=== PATIENT | female | born 2000 | race Caucasian/White ===

== ENCOUNTER 2022-07-03 12:58 | Outpatient (REF) | payer BC, SELFPAY ==
[2022-07-04 16:48] LABS: CT PCR NOT DETECTED (Not Detect.); NG PCR NOT DETECTED (Not Detect.)
[2022-07-05 13:32] LABS: BV Int Neg Control Negative (Negative); BV Int Pos Control Positive (Positive)
== END 2022-07-03 12:59 | disposition home or self-care (01) ==
LOC: HO.LNP 12:58
PROVIDERS: PCP Internal Medicine; Visit Provider Advanced Practice Midwife
DX: Z01.419 Encounter for gynecological examination (general) (routine) without abnormal findings (principal); Z20.2 Contact with and (suspected) exposure to infections with a predominantly sexual mode of transmission
CPT/HCPCS: 0353U; 87480; 87510; 87660; 88142

== ENCOUNTER → 2022-07-08 12:55 | Outpatient (BNVA) | payer BC, SELFPAY | PROVIDERS: PCP Internal Medicine; Visit Provider Advanced Practice Midwife | DX: Z30.430 Encounter for insertion of intrauterine contraceptive device (principal) | CPT/HCPCS: 58300; 81025; J7296 ==

== ENCOUNTER → 2022-08-21 13:38 | Outpatient (BNVA) | payer BC, SELFPAY | PROVIDERS: PCP Internal Medicine; Visit Provider Advanced Practice Midwife ==

== ENCOUNTER 2023-02-02 08:25 | Outpatient (AMB) | payer BC, SELFPAY ==
--- NOTE | 2023-02-02 08:41 | AM.OFFVISNUR ---
Intake Intake Visit Reasons: Flu shot, TB Test Allergies No Known Allergies Allergy (Verified 08/21/22 13:49) Office Meds tuberculin PPD 5 tub. unit/0.1 mL intradermal injection solution Performing Provider: Mansi Thompson MD [facility] 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
== END 2023-02-02 08:41 | disposition home or self-care (01) ==
PROVIDERS: PCP Internal Medicine; Visit Provider Internal Medicine
DX: Z23 Encounter for immunization (principal); Z11.1 Encounter for screening for respiratory tuberculosis
CPT/HCPCS: 86580; 90471; 90686

== ENCOUNTER 2023-05-04 07:27 | Outpatient (AMB) | payer BC, SELFPAY ==
[2023-05-04 07:32] VITALS: BP 110/64; BMI 24.0
--- NOTE | 2023-05-04 07:32 | MHC.PC.OV ---
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 Accompanied by: Self / Same As Patient Allergies No Known Allergies Allergy (Verified 05/04/23 07:41) Medication List - Last Reconciled 05/04/23 by Mansi Thompson MD levonorgestrel (Kyleena) intrauterine Tobacco use date assessed: 05/04/23 Dental Screening Dental Screen Date: 05/04/23 Did you have a dental visit in the last 12 months?: Yes Did you have a dental problem in the last 6 months where you did not have access to dental care?: No Was dental information given to patient?: Patient has dentist HPI HPI Comments History of Present Illness Details This is a 22 year old female that comes for her physical exam. No acute complaints. Last Pap smear was 2022. Had flu vaccine already. [facility] Medical History Anemia Surgical History History of lingual frenotomy History of wisdom tooth extraction Family History Father Hypertension Mother No problems noted. Paternal Grandfather Cancer Social History Housing: Apartment Alcohol intake: current Alcohol intake frequency: holidays/special occasions only Alcohol type: wine and hard liquor Patient Tobacco Use Status: Never used Tobacco e-Cigarette/Vaping Use: Currently Using Second Hand Smoke Exposure: No service: No Current occupational status: employed Current occupational exposures/hazards: No Cognitive needs: No Hearing needs: No Vision needs: Yes Female Reproductive History Menstrual Age of Menarche: 11 Questionnaire PHQ-9 Over the last 2 weeks, how often have you been bothered by any of the following problems? 1. Little interest or pleasure in doing things: not at all 2. Feeling down, depressed, or hopeless: not at all 3. Trouble falling or staying asleep, or sleeping too much: not at all 4. Feeling tired or having little energy: not at all 5. Poor appetite or overeating: not at all 6. Feeling bad about yourself - or that you are a failure or have let yourself or your family down: not at all 7. Trouble concentrating on things, such as reading the newspaper or watching television: not at all 8. Moving or speaking so slowly that other people could have noticed. Or the opposite - being so fidgety or restless that you have been moving around a lot more than usual: not at all 9. Thoughts that you would be better off or of hurting yourself in some way: not at all Total score: 0 Depression Screening Interpretation: Negative Depression Screening Done: Yes 87907 - PHQ-9 Billing: Yes Source: Developed by Drs. Marlon Victor, Jeannie Velazco, Jorge Clark and colleagues, with an educational yecenia from [employer]. Thrive Questionnaire Date Thrive assessed: 05/04/23 I am a: Patient What is your living situation today?: I have a steady place to live Within the past 12 months, did the food you bought not last and you didn't have the money to get more?: Never true Within the past 12 months, did you worry whether your food would run out before you got money to buy more?: Never true Do you have trouble paying for medicines?: No Do you have trouble getting transportation to medical appointments?: No Do you have trouble paying your heating and electricity bill?: No Do you have trouble taking care of your child, family member or friend?: No Do you have trouble with day-to-day activities such as bathing, preparing meals, shopping, managing finances, etc.?: No Are you currently unemployed and looking for a job?: No Are you interested in more education?: No Please select the resources that you would like help with: None Currently or been in a relationship where the following occur: no concerns reported THRIVE Score: 0 AUDIT C Alcohol Use Questionnaire (AUDIT-C) 1. How often do you have a drink containing alcohol?: Monthly or less 2. How many drinks containing alcohol do you have on a typical day when you are drinking?: 1 or 2 3. How often do you have six or more drinks on one occasion?: Never Total Score: 1 Score Reviewed/Action Taken: No NINO-7 AMB Questionnaire NINO-7 Date NINO - 7 assessed: 05/04/23 Feeling nervous, anxious, or on edge: 0 = Not at all Not being able to stop or control worryin = Not at all Worrying too much about different things: 0 = Not at all Trouble relaxin = Not at all Being so restless that it is hard to sit still: 0 = Not at all Becoming easily annoyed or irritable: 0 = Not at all Feeling afraid as if something awful might happen: 0 = Not at all Total NINO-7 score (0-4 normal; 5-9 mild; 10-14 moderate; 15-21 severe): 0 Source: Developed by Drs. Marlon Victor, Jeannie Velazco, Jorge Clark and colleagues, with an educational yecenia from [employer]. NINO-7 Assessment Billing NINO-7 Assessment Tool: NINO-7 Assessment 84991 Review of Systems Const All systems reviewed & are unremarkable except as noted in HPI and below Eyes Reports no additional complaints, Denies change in vision and Denies other visual disturbances Card Denies chest pain at rest, Denies chest pain with activity, Denies edema, Denies irregular heart rhythm, Denies claudication, Denies dyspnea, Denies dyspnea on exertion, Denies orthopnea, Denies paroxysmal nocturnal dyspnea and Denies slow heart rate Resp Denies cough, Denies dyspnea and Denies dyspnea on exertion GI Denies abdominal pain, Denies change in bowel habits, Denies excessive flatus, Denies nausea and Denies vomiting Denies urinary incontinence, Denies urinary hesitancy and Denies urinary urgency Musc Denies abnormal gait, Denies atrophy, Denies deformity and Denies limited range of motion Skin/Breast Denies bleeding lesions, Denies changing lesions and Denies rash Neuro Denies abnormal gait, Denies behavioral changes, Denies confusion and Denies lack of coordination Psych Denies behavioral changes and Denies confusion Physical exam (Primary Care) Vital Signs: Last Vital Signs BP 110/64 05/04/23 07:32 BMI result Body Mass Index 24.0 Tobacco/Smoking Status: Tobacco use Status Tobacco use date assessed 05/04/23 05/04/23 07:38 Patient Tobacco Use Status Never used Tobacco 05/04/23 07:38 e-Cigarette/Vaping Use Currently Using 05/04/23 07:38 PHQ-9: PHQ-9 Score PHQ-9: Total score 0 05/04/23 07:38 Depression Screening Interpretation: Negative Thrive Assessment: Date of Thrive Assessment Date Thrive assessed 05/04/23 05/04/23 07:38 Currently or been in a relationship where the following occur: no concerns reported Const General: No confusion Orientation/consciousness: patient oriented x3 and No confusion HENMT Head: Yes normal to inspection, Yes normocephalic and Yes atraumatic Ears: external ears normal Eyes General: appearance normal, both eyes and all related structures Eyelids: Yes eyelids normal Conjunctivae: conjunctivae normal Neck Neck: Yes normal visual inspection and Yes supple Resp Effort & Inspection: normal respiratory effort Auscultation: clear to auscultation bilaterally Cardio Jugular venous distension: no JVD Rate: regular rate Rhythm: regular rhythm Heart sounds: S1 normal heart sound present and S2 normal heart sound present GI Inspection: Yes normal to inspection Palpation (GI): Soft to palpation and nontender Auscultation: normal bowel sounds Skin General skin exam: no rashes or lesions noted Neuro General: patient oriented x3, no focal motor deficits and No confusion Extrem General: Yes full ROM Psych Appearance: grossly normal Assessment and Plan Assessment & Plan (1) Physical exam: Code(s): Z00.00 - Encounter for general adult medical examination without abnormal findings Plan: Repeat in a year. Orders: Orders IRON PROFILE Today D64.9 - Anemia, unspecified Lipid Panel Today Z00.00 - Encounter for general adult medical examination without abnormal findings Comprehensive Check. Panel Fast Today Z00.00 - Encounter for general adult medical examination without abnormal findings Complete Blood Count Auto Diff Today D64.9 - Anemia, unspecified Coding Level of Care Code Est Pt Prev Care 18-39y(35892) Diagnoses Physical exam Z00.00 Additional Codes NINO-7 Assessment Billing - NINO-7 Assessment Tool: NINO-7 Assessment 88459 ([id number]) Time Spent (min) 30
== END 2023-05-04 07:50 | disposition home or self-care (01) ==
PROVIDERS: Visit Provider Internal Medicine
DX: Z00.00 Encounter for general adult medical examination without abnormal findings (principal)
CPT/HCPCS: 99395

== ENCOUNTER 2023-05-27 09:02 | Outpatient (REF) | payer BC, SELFPAY ==
[2023-05-27 09:16] LABS: MANUAL DIFF FLAG NO
[2023-05-27 09:37] LABS: Basophils Percent Auto 1.2 % (0-2); Eosinophils Absolute Auto 0.1 X10*3/uL (0.0-0.4); Eosinophils Percent Auto 2.6 % (0-4); Hematocrit 27.7 % (37.0-47.0); Hemoglobin 9.7 g/dl (12.0-16.0); Lymphocytes Absolute Auto 1.3 X10*3/uL (1.2-4.9); Lymphocytes Percent Auto 36.7 % (20-40); Mean Corpuscular Hemoglobin 37.9 pg (27.0-33.0); Mean Corpuscular Volume 108.2 fL (80.0-98.0); Mean Platelet Volume 8.9 fL (9.4-12.3); Monocytes Absolute Auto 0.2 X10*3/uL (0.1-1.2); Monocytes Percent Auto 5.8 % (2-11); Neutrophils Absolute Auto 1.8 x10*3/uL (2.0-8.3); Neutrophils Percent Auto 53.7 % (45-73); Platelet Count 279 X10*3/uL (160-400); Red Blood Count 2.56 X10*6/uL (4.20-5.50); Red Cell Distribution Width 12.5 % (11.0-16.0); White Blood Count 3.4 X10*3/uL (4.8-10.8)
[2023-05-27 10:08] LABS: Alanine Aminotransferase 7 U/L (0-31); Albumin Level 4.4 g/dL (3.5-5.0); Alkaline Phosphatase 64 U/L (39-117); Anion Gap 11 (12-20); Aspartate Amino Transferase 11 U/L (5-31); Bilirubin Total 0.6 mg/dL (0.0-1.0); Blood Urea Nitrogen 7 mg/dL (9-16); Calcium 9.1 mg/dL (8.4-10.2); Carbon Dioxide 22 mmol/L (22-29); Chloride 110 mmol/L (96-108); Cholesterol 94 mg/dL (<200); Estimated Glomerular Filt Rate > 60; Glucose Fasting 98 mg/dL (60-99); HDL Cholesterol 46 mg/dL (>40); Iron 165 mcg/dL (30-160); LDL Cholesterol Calculated 42 mg/dL (<100); Percent Iron Saturation 79 % (15-50); Potassium 3.9 mmol/L (3.3-5.1); Sodium 139 mmol/L (135-145); Total Iron Binding Capacity 208 mcg/dL (228-428); Total Protein 6.8 g/dL (6.5-8.0); Triglycerides 32 mg/dL (<150); Unsaturated Iron Binding 43 ug/dL
== END 2023-05-27 09:03 | disposition home or self-care (01) ==
LOC: HO.LAB 09:02
PROVIDERS: Visit Provider Internal Medicine
DX: Z00.00 Encounter for general adult medical examination without abnormal findings (principal); D64.9 Anemia, unspecified
CPT/HCPCS: 36415; 80053; 80061; 83540; 85025

== ENCOUNTER → 2023-07-09 15:00 | Outpatient (BNV) | payer BC, SELFPAY | PROVIDERS: PCP Internal Medicine; Referring Provider Internal Medicine; Visit Provider Internal Medicine Medical Oncology | DX: D72.819 Decreased white blood cell count, unspecified (principal); D64.9 Anemia, unspecified | CPT/HCPCS: 99204; 99213 ==

== ENCOUNTER 2023-08-23 09:00 | Outpatient (REF) | payer BC, SELFPAY ==
[2023-08-24 02:34] LABS: CT PCR NOT DETECTED (Not Detect.); NG PCR NOT DETECTED (Not Detect.)
[2023-08-24 12:22] LABS: BV Int Neg Control Negative (Negative); BV Int Pos Control Positive (Positive)
== END 2023-08-23 09:01 | disposition home or self-care (01) ==
LOC: HO.LNP 09:00
PROVIDERS: Visit Provider Advanced Practice Midwife
DX: Z11.3 Encounter for screening for infections with a predominantly sexual mode of transmission (principal)
CPT/HCPCS: 0353U; 87480; 87510; 87660

== ENCOUNTER 2023-08-23 09:00 | Outpatient (AMB) | payer BC, SELFPAY ==
[2023-08-23 09:09] VITALS: BP 106/52; BMI 24.3
--- NOTE | 2023-08-23 09:09 | MHC.OFFVIS ---
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 She has not having any problems she is going to be seeing Rheumatology Hematology for follow-up on her CBC and she is also going to be seeing the technician test systems at [facility] to investigate things as well she had been told she was anemic and she would some abnormal red blood cells and red blood cell count was low so she had a bone marrow biopsy when she was 16 years old and things turned to fine but she is decided to continue the follow-up that she did not finish. She has not having any problems with the IUD she can tell when she is sort of premenstrual and menstrual she gets a 1 day of spotting. Which was about a week ago. 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 She has no concerns about STIs but after some discussion she is open to getting tested. She had no problem putting the IUD in and getting tattoos but getting blood drawn makes her want to pass out so I offered to order blood work for her that she can choose whether not get done when the next time she gets her blood drawn in 1 phlebotomy episode. She is healthy and has new symptoms of anything she is happy with the Kyleena IUD. [facility] Medical History Anemia Surgical History History of lingual frenotomy History of wisdom tooth extraction Family History Father Hypertension Mother No problems noted. Paternal Grandfather Cancer Social History (Reviewed 08/23/23 @ 09:11 by GLORIA Reed Household Members: Significant Other Housing: Apartment Alcohol intake: current Alcohol intake frequency: holidays/special occasions only Alcohol type: wine and hard liquor Patient Tobacco Use Status: Never used Tobacco e-Cigarette/Vaping Use: Currently Using Second Hand Smoke Exposure: No service: No Current occupational status: employed Current occupational exposures/hazards: No Cognitive needs: No Hearing needs: No Vision needs: Yes Female Reproductive History Menstrual Age of Menarche: 11 control method: progestin IUCD Total pregnancies: 1 Ab induced: 1 Date of last pap smear: 07/06/22 (negative) History of abnormal pap smear: No Physical Exam Vital Signs: Last Vital Signs BP 106/52 L 08/23/23 09:09 BMI result Body Mass Index 24.3 Const General: healthy appearing, comfortable, no acute distress, well developed and alert Nutritional Appearance: average body habitus Orientation/consciousness: patient oriented x3 Limitations: no limitations HEENT Head: Yes normocephalic Neck Neck: Yes normal visual inspection Thyroid: Thyroid normal Chest Chest palpation & inspection: normal inspection of the chest Breast/axilla inspection: normal inspection of the breasts and normal inspection of the axillae Breast/axilla palpation: normal palpation of the breasts and normal palpation of the axillae Resp Effort & Inspection: normal respiratory effort GI Inspection: Yes normal to inspection, No Abdominal wall edema and No distended Palpation (GI): Soft to palpation and nontender Other: External exam within normal limits vulva and vagina pink healthy scant clear mucus cervix nulliparous with Kyleena strings easily visible extending about 2 2.5 cm,. Cervix mobile nontender uterus midposition to very slightly retroverted mobile nontender not enlarged adnexa not enlarged good tone with Kegel. General: Yes bladder normal to palpation External Female Exam: normal external appearance and normal appearance of the urethra Speculum Exam - Vagina: normal appearance of the vagina, normal palpation and normal vaginal discharge Speculum Exam - Cervix: normal appearance of the cervix, normal palpation and nontender Bimanual exam- vagina & uterus: normal bimanual exam, normal palpation, uterine size normal, bladder normal to palpation, consistency normal, normal palpation, uterine mobility normal, uterine shape normal, No Cervical tenderness present, non-tender and no cervical motion tenderness Bimanual Exam- Adnexa, other: normal adnexae, no masses, normal and No adnexal tenderness Neuro General: patient oriented x3 Assessment & Plan Assessment & Plan (1) Contraception management: Comment: Has Kyleena IUD inserted 07/08/22, happy with it. Code(s): Z30.9 - Encounter for contraceptive management, unspecified Category: Medical (2) Screening for cervical cancer: Comment: 07/03/2022 Pap is negative. Code(s): Z12.4 - Encounter for screening for malignant neoplasm of cervix Category: Medical (3) Well woman exam with routine gynecological exam: Code(s): Z01.419 - Encounter for gynecological examination (general) (routine) without abnormal findings Category: Medical (4) Encounter for routine checking of intrauterine contraceptive device (IUD): Code(s): Z30.431 - Encounter for routine checking of intrauterine contraceptive device Category: Medical (5) Encounter for screening examination for sexually transmitted disease: Code(s): Z11.3 - Encounter for screening for infections with a predominantly sexual mode of transmission Category: Medical Plan -----Discussed in this visit the following: healthy balanced diet, regular and consistent exercise, getting recommended health screens, doing the best she can for her particular health concerns, kegel exercises, pap smear screening and followup recommendations, mammography screening and SBE, normal changes in cycles in her life stage--- . Reviewed her planned follow-up for her anemia issue. As in HPI I offered to order blood tests for STDs including HIV hep B hep C and syphilis. She has not sure she needs it but this way if she decides later on to get them she can get them done the next time she has her blood drawn as getting her blood drawn is challenging for her. We will see her next year she is on the portal and get her results that way her Pap smear was normal last year.. Orders: Orders Hepatitis B Surface Antigen Today Z01.419 - Encounter for gynecological examination (general) (routine) without abnormal findings, Z11.3 - Encounter for screening for infections with a predominantly sexual mode of transmission, Z12.4 - Encounter for screening for malignant neoplasm of cervix, Z30.431 - Encounter for routine checking of intrauterine contraceptive device, Z30.9 - Encounter for contraceptive management, unspecified Syphilis Screen Today Z01.419 - Encounter for gynecological examination (general) (routine) without abnormal findings, Z11.3 - Encounter for screening for infections with a predominantly sexual mode of transmission, Z12.4 - Encounter for screening for malignant neoplasm of cervix, Z30.431 - Encounter for routine checking of intrauterine contraceptive device, Z30.9 - Encounter for contraceptive management, unspecified HIV Ab/Ag Today Z01.419 - Encounter for gynecological examination (general) (routine) without abnormal findings, Z11.3 - Encounter for screening for infections with a predominantly sexual mode of transmission, Z12.4 - Encounter for screening for malignant neoplasm of cervix, Z30.431 - Encounter for routine checking of intrauterine contraceptive device, Z30.9 - Encounter for contraceptive management, unspecified Hepatitis C Antibody Today Z01.419 - Encounter for gynecological examination (general) (routine) without abnormal findings, Z11.3 - Encounter for screening for infections with a predominantly sexual mode of transmission, Z12.4 - Encounter for screening for malignant neoplasm of cervix, Z30.431 - Encounter for routine checking of intrauterine contraceptive device, Z30.9 - Encounter for contraceptive management, unspecified Coding Level of Care Code Est Pt Prev Care 18-39y(85252) Diagnoses Contraception management Z30.9 Screening for cervical cancer Z12.4 Well woman exam with routine gynecological exam Z01.419 Encounter for routine checking of intrauterine contraceptive device (IUD) Z30.431 Encounter for screening examination for sexually transmitted disease Z11.3
== END 2023-08-23 09:47 | disposition home or self-care (01) ==
PROVIDERS: Visit Provider Advanced Practice Midwife
DX: Z30.9 Encounter for contraceptive management, unspecified (principal); Z12.4 Encounter for screening for malignant neoplasm of cervix; Z01.419 Encounter for gynecological examination (general) (routine) without abnormal findings; Z30.431 Encounter for routine checking of intrauterine contraceptive device; Z11.3 Encounter for screening for infections with a predominantly sexual mode of transmission
CPT/HCPCS: 99395

== ENCOUNTER 2024-05-08 07:37 | Outpatient (REF) | payer BC, SELFPAY ==
--- OUTSIDE RECORDS SUMMARY | 2024-05-08 12:33 | XMS_ITS | Encounter Summary ---
Author Organization [facility] Address [address] [place] [address] Phone Care Team Providers Care Mortgage Loan Interviewer Name Role Phone Vi Neal MD Primary Care Provider [phone] Reason for Visit * Reason Comments Med Refill Encounter Details Date Type Department Care Team (Late st Contact Info) Description 12/14/2020 Refill [facility] [address] [place] [address] Vi Neal MD [address] [place] [address] Encounter for contraceptive management, unspecified type Social [...] type documented in this encounter Care Teams Mortgage Loan Interviewer Relationship Specialty Start Date End Date Vi Neal MD [address] [place] [address] MARINA [place] [address] PCP - General 11/20/16 04/30/22 documented as of this encounter
--- OUTSIDE RECORDS SUMMARY | 2024-05-08 12:33 | XMS_ITS | Clinical Summary ---
Author Organization [facility] Address [address] [place] [address] Phone Care Team Providers Care Dog Licenser Name Role Phone Unavailable Primary Care Provider [...] summer 2017. DR Lopez recommends Pt see Churn Drill Operator at [facility] who specializes in Iron/B12 metabolism. He believes this is familial & is worth Pt going for testing. Family was alerted & FU was recomended Assessment & Plan (09/26/2019 10:20 AM EDT): Did not set up FU at Heme-Onc as recommended last year Patient says Dr Lopez wanted Patient to see bobbin loose end finder at [facility] Because of Coronavirus pandemic will wait [...] the last 12 months, has t he [employer], gas, oil, or water [employer] threatened to shut off your services in [...] complete this topic Procedures * Due to [place] [employer] law, this organization might not be sharing sensitive test results. Procedure Name Priority Date/Time Associated Diagnosis Comments CHLAMYDIA AND GONORRHEA, AMPLIFIED Routine 06/27/2018 10:19 AM EDT Screening examination for bacterial and spirochetal disease from Last 3 Months or Most Recently Relevant to Health Maintenance Results * Due to [place] [employer] law, this organization might not be sharing sensitive test results. * Chlamydia and Gonorrhoea, Amplified (06/27/2018 10:19 AM EDT) Pathologist [facility] Chlamydia Trachomatis, DNA Probe NEGATIVE (NEG) [facility] Comment: No Chlamydia Trachomatis RNA detected in this patient's sample ? (REFERENCE RANGE/NORMAL VALUE: NOT DETECTED) ? Note: This test uses boat canvas maker installer- mediated amplification method to detect rRNA from C. Trachomatis URINE GC AMP PROBE NEGATIVE (NEG) [facility] Comment: No Neisseria Gonorrhoeae RNA detected in this patient's sample ? (REFERENCE RANGE/NORMAL VALUE: NOT DETECTED) ? NOTE: This test uses boat canvas maker installer-mediated amplification method to detect rRNA from N.Gonorrhoeae. [...] without risk of sexual abuse. Consult the [facility] if needed. Contact phone number . Therapeutic failure or success cannot be determined with the Aptima Combo2 assay since nucleic acid may persist following appropriate antimicrobial therapy. The Centers for Disease Control and Prevention (CDC) recommends confirmatory retesting using culture or a different nucleic acid amplification test when positive results occur, if indicated. Testing performed or reported by [facility], a Service of [facility], [address] [place] [address] Urine 06/27/2018 10:1 9 AM EDT 06/27/2018 11:33 PM EDT Vi Neal MD LAB MICROBIOLOGY - GENERAL ORDER SHYANNE Final Result [facility] from Last 3 Months or Most Recently Relevant to Health Maintenance Insurance [facility] [employer]
--- OUTSIDE RECORDS SUMMARY | 2024-05-08 12:33 | XMS_ITS | Encounter Summary ---
Author Organization [facility] Address [address] [place] [address] Phone Care Team Providers Care Furniture Reproducer Name Role Phone Vi Neal MD Primary Care Provider [phone] Encounter Details Date Type Department Care Team (Late st Contact Info) Description 12/22/2010 Documentation [facility] [place] [address] [place] [address] Family Medicine, Physician [address] [place], [place] [address] Social History Tobacco Use Types Packs/Day Years [...] on filedocumented in this encounter Care Teams Furniture Reproducer Relationship Specialty Start Date End Date Vi Neal MD [address] [place] [address] PCP - General 11/20/16 04/30/22 documented as of this encounter
--- OUTSIDE RECORDS SUMMARY | 2024-05-08 12:33 | XMS_ITS | Encounter Summary ---
Author Organization [facility] Address [address] [place] [address] Phone Care Team Providers Care Chemical Research Technician Name Role Phone Vi Neal MD Primary Care Provider [phone] Reason for Visit * Reason Comments Med Refill Encounter Details Date Type Department Care Team (Late st Contact Info) Description 02/21/2018 Refill [facility] [address] [place] [address] Lee Ann Gallardo MD Encounter for contraceptive [...] type documented in this encounter Care Teams Chemical Research Technician Relationship Specialty Start Date End Date Vi Neal MD [address] [place] [address] PCP - General 8/11/17 1/19/23 documented as of this encounter
--- OUTSIDE RECORDS SUMMARY | 2024-05-08 12:33 | XMS_ITS | Encounter Summary ---
Author Organization [facility] Address [address] [place] [address] Phone Care Team Providers Care Naturopathic Physician Name Role Phone Vi Neal MD Primary Care Provider [phone] Encounter Details Date Type Department Care Team (Late st Contact Info) Description 01/02/2016 Documentation [facility] Family Medicine [address] [place] [address] Family Medicine, Physician [address] [place], [place] [address] Social History Tobacco Use Types Packs/Day Years [...] on filedocumented in this encounter Care Teams Naturopathic Physician Relationship Specialty Start Date End Date Vi Neal MD [address] [place] [address] PCP - General 11/20/16 04/30/22 documented as of this encounter
--- OUTSIDE RECORDS SUMMARY | 2024-05-08 12:33 | XMS_ITS | Clinical Summary ---
Author Organization [facility] Address [address] [place] [address] Care Team Providers Care Engineering Consultant Name Role Phone Pcp, No Primary Care [...] Group Subscriber ID Effective Dates Phone Address [facility] [id number] [address] Care Teams Engineering Consultant Relationship Specialty Start Date End Date Pcp, No PCP - General General Medicine 04/12/18
--- OUTSIDE RECORDS SUMMARY | 2024-05-08 12:33 | XMS_ITS | Encounter Summary ---
Author Organization [facility] Address [address] [place] [address] Phone Care Team Providers Care Roofing Machine Tender Name Role Phone Vi Neal MD Primary Care Provider [phone] Encounter Details Date Type Department Care Team (Late st Contact Info) Description 11/26/2016 Conversion Encounter [facility] [place] [facility] [address] [place] [address] Social History Tobacco Use Types Packs/Day Years [...] on filedocumented in this encounter Care Teams Roofing Machine Tender Relationship Specialty Start Date End Date Vi Neal MD [address] [place] [address] PCP - General 11/20/16 04/30/22 documented as of this encounter
--- OUTSIDE RECORDS SUMMARY | 2024-05-08 12:33 | XMS_ITS | Encounter Summary ---
Author Organization [facility] Address [address] [place] [address] Care Team Providers Care Mobile Equipment Operator Name Role Phone Pcp, No Primary Care Provider Unavailabl e Encounter Details Date Type Department Care Team (Late st Contact Info) Description 01/04/2019 Telephone [facility] [address] [phone] Jarett Green MD [address] [place] [address] Social History Tobacco Use Types Packs/Day Years [...] on filedocumented in this encounter Care Teams Mobile Equipment Operator Relationship Specialty Start Date End Date Pcp, No PCP - General General Medicine 04/12/18 documented as of this encounter
--- OUTSIDE RECORDS SUMMARY | 2024-05-08 12:33 | XMS_ITS | Encounter Summary ---
Author Organization [facility] Address [address] [place] [address] Phone Care Team Providers Care Detailer Pharmaceuticals Name Role Phone Vi Neal MD Primary Care Provider [phone] Reason for Visit * Reason Comments Med Refill Encounter Details Date Type Department Care Team (Late st Contact Info) Description 03/09/2021 Refill [facility] [place] [address] [place] [address] Vi Neal MD [address] [place] [address] Encounter for contraceptive management, unspecified type Social [...] type documented in this encounter Care Teams Detailer Pharmaceuticals Relationship Specialty Start Date End Date Vi Neal MD [address] [place] [address] MAR[place] [address] PCP - General 11/20/16 04/30/22 documented as of this encounter
[2024-05-11 00:25] LABS: TS Negative Control Passed; TS Panel A 0; TS Panel B 0; TS Positive Control Passed; TSpotTB Negative (Negative)
== END 2024-05-08 07:38 | disposition home or self-care (01) ==
LOC: HO.LAB 07:37
PROVIDERS: PCP Internal Medicine; Visit Provider Internal Medicine
DX: Z00.00 Encounter for general adult medical examination without abnormal findings (principal); Z11.1 Encounter for screening for respiratory tuberculosis
CPT/HCPCS: 36415; 86481; 90471; 96127

== ENCOUNTER 2024-05-08 07:37 | Outpatient (AMB) | payer BC, SELFPAY ==
--- NOTE | 2024-05-08 07:39 | MHC.PC.OV ---
Vital Signs 05/08/24 07:40 Height 5 ft 2 in Weight 131 lb BMI 24.0 BP 108/70 Blood Pressure Location Lt brachial Position Sitting Intake Visit Reasons: Annual Exam Intake Note: Patient here for a physical exam Animation Director Required: No Accompanied by: Self / Same As Patient Allergies No Known Allergies Allergy (Verified 05/08/24 07:46) Medication List - Last Reconciled 05/08/24 by Mansi Thompson MD levonorgestrel (Kyleena) 17.5 mcg intrauterine DAILY Tobacco use date assessed: 05/08/24 Dental Screening Dental Screen Date: 05/08/24 Did you have a dental visit in the last 12 months?: Yes Did you have a dental problem in the last 6 months where you did not have access to dental care?: No Was dental information given to patient?: Patient has dentist HPI HPI Comments History of Present Illness Details The patient is a 23-year-old female presenting for a physical exam. She has a history of anemia which is actively being followed by hematology. There are no acute concerns at this visit. She has no known medication allergies and currently uses the contraceptive Kylina for control. No significant surgical history beyond a lingual frenotomy and wisdom tooth extraction. There is a family history of essential hypertension, as her father is affected. She reports no smoking history and consumes alcohol in moderation, typically in social settings, less than twice a month. She denies any respiratory symptoms, gastrointestinal issues, or psychological complaints such as depression or anxiety. She has received her Tdap vaccination in 2021. - Tdap vaccine administered in 2021. - Pap smear done 2022 and was negative for malignancy. [facility] Medical History Anemia Surgical History History of lingual frenotomy History of wisdom tooth extraction Family History Father Hypertension Mother No problems noted. Paternal Grandfather Cancer Social History (Updated 05/08/24 @ 07:51 by Mansi Thompson MD) Household Members: Significant Other Housing: Apartment Alcohol intake: current Alcohol intake frequency: a few times a month Alcohol type: wine and hard liquor Patient Tobacco Use Status: Never used Tobacco e-Cigarette/Vaping Use: Currently Using Second Hand Smoke Exposure: No service: No Current occupational status: employed Current occupational exposures/hazards: No Cognitive needs: No Hearing needs: No Vision needs: Yes Female Reproductive History Menstrual Age of Menarche: 11 Questionnaire PHQ-9 Over the last 2 weeks, how often have you been bothered by any of the following problems? 1. Little interest or pleasure in doing things: not at all 2. Feeling down, depressed, or hopeless: not at all 3. Trouble falling or staying asleep, or sleeping too much: not at all 4. Feeling tired or having little energy: not at all 5. Poor appetite or overeating: not at all 6. Feeling bad about yourself - or that you are a failure or have let yourself or your family down: not at all 7. Trouble concentrating on things, such as reading the newspaper or watching television: not at all 8. Moving or speaking so slowly that other people could have noticed. Or the opposite - being so fidgety or restless that you have been moving around a lot more than usual: not at all 9. Thoughts that you would be better off or of hurting yourself in some way: not at all Total score: 0 Depression Screening Interpretation: Negative Depression Screening Done: Yes 66711 - PHQ-9 Billing: Yes Source: Developed by Drs. Marlon Victor, Jeannie Velazco, Jorge Clark and colleagues, with an educational yecenia from [employer] Thrive Questionnaire Date Thrive assessed: 05/08/24 I am a: Patient What is your living situation today?: I have a steady place to live Within the past 12 months, did the food you bought not last and you didn't have the money to get more?: Never true Within the past 12 months, did you worry whether your food would run out before you got money to buy more?: Never true Do you have trouble paying for medicines?: No Do you have trouble getting transportation to medical appointments?: No Do you have trouble paying your heating and electricity bill?: No Do you have trouble taking care of your child, family member or friend?: No Do you have trouble with day-to-day activities such as bathing, preparing meals, shopping, managing finances, etc.?: No Are you currently unemployed and looking for a job?: No Are you interested in more education?: No Please select the resources that you would like help with: None Currently or been in a relationship where the following occur: No concerns reported THRIVE Score: 0 AUDIT C Alcohol Use Questionnaire (AUDIT-C) 1. How often do you have a drink containing alcohol?: 2-4 times a month 2. How many drinks containing alcohol do you have on a typical day when you are drinking?: 3 or 4 3. How often do you have six or more drinks on one occasion?: Never Total Score: 3 NINO-7 AMB Questionnaire NINO-7 Date NINO - 7 assessed: 05/08/24 Feeling nervous, anxious, or on edge: 0 = Not at all Not being able to stop or control worryin = Not at all Worrying too much about different things: 0 = Not at all Trouble relaxin = Not at all Being so restless that it is hard to sit still: 0 = Not at all Becoming easily annoyed or irritable: 0 = Not at all Feeling afraid as if something awful might happen: 0 = Not at all Total NINO-7 score (0-4 normal; 5-9 mild; 10-14 moderate; 15-21 severe): 0 Source: Developed by Drs. Marlon Victor, Jeannie Velazco, Jorge Clark and colleagues, with an educational yecenia from [employer] NINO-7 Assessment Billing NINO-7 Assessment Tool: NINO-7 Assessment 34593 Review of Systems Const All systems reviewed & are unremarkable except as noted in HPI and below Card Denies chest pain at rest, Denies chest pain with activity, Denies edema, Denies irregular heart rhythm, Denies claudication, Denies dyspnea, Denies dyspnea on exertion, Denies orthopnea, Denies paroxysmal nocturnal dyspnea and Denies slow heart rate Resp Denies cough, Denies dyspnea and Denies dyspnea on exertion GI Denies abdominal pain, Denies change in bowel habits, Denies excessive flatus, Denies nausea and Denies vomiting Denies urinary incontinence, Denies urinary hesitancy and Denies urinary urgency Musc Denies abnormal gait, Denies atrophy, Denies deformity and Denies limited range of motion Skin/Breast Denies bleeding lesions, Denies changing lesions and Denies rash Neuro Denies abnormal gait and Denies lack of coordination Physical exam (Primary Care) Vital Signs: Last Vital Signs BP 108/70 05/08/24 07:40 BMI result Body Mass Index 24.0 Tobacco/Smoking Status: Tobacco use Status Tobacco use date assessed 05/08/24 05/08/24 07:45 Patient Tobacco Use Status Never used Tobacco 05/08/24 07:45 e-Cigarette/Vaping Use Currently Using 05/08/24 07:45 PHQ-9: PHQ-9 Score PHQ-9: Total score 0 05/08/24 07:45 Depression Screening Interpretation: Negative Thrive Assessment: Date of Thrive Assessment Date Thrive assessed 05/08/24 05/08/24 07:45 Currently or been in a relationship where the following occur: No concerns reported HENMT Head: Yes normal to inspection, Yes normocephalic and Yes atraumatic Ears: external ears normal Eyes General: appearance normal, both eyes and all related structures Eyelids: Yes eyelids normal Conjunctivae: conjunctivae normal Neck Neck: Yes normal visual inspection and Yes supple Resp Effort & Inspection: normal respiratory effort Auscultation: clear to auscultation bilaterally Cardio Jugular venous distension: no JVD Rate: regular rate Rhythm: regular rhythm Heart sounds: S1 normal heart sound present and S2 normal heart sound present GI Inspection: Yes normal to inspection Palpation (GI): Soft to palpation and nontender Auscultation: normal bowel sounds Skin General skin exam: no rashes or lesions noted Neuro General: no focal motor deficits Extrem General: Yes full ROM Psych Appearance: grossly normal Office Procedures Flu Questionnaire Does the patient have a severe egg allergy?: No Immunizations Fluarix Triv [id number] (PF) 45 mcg (15 mcg x 3)/0.5 mL IM syringe Performing Provider: Mansi Thompson MD [facility] Documented (not given) by: ZAKIA Martini on 05/08/24 07:47 Reason Not Given: Received Previously Coding Level of Care Code Est Pt Prev Care 18-39y(02229) Diagnoses Physical exam Z00.00 Additional Codes PHQ-9 - 58044 - PHQ-9 Billing: Yes ([id number]) NINO-7 Assessment Billing - NINO-7 Assessment Tool: NINO-7 Assessment 66452 ([id number]) Time Spent (min) 30 Assessment & Plan Assessment & Plan (1) Physical exam: Code(s): Z00.00 - Encounter for general adult medical examination without abnormal findings Category: Medical Plan - Monitor anemia with ongoing hematology follow-up. - Maintain current contraception method. - Advise on continued moderation in alcohol intake. - Follow up on pending T-Spot test results for tuberculosis screening. - Encourage patient to remain up-to-date with vaccinations and follow preventive care guidelines. Patient was informed and verbally consented to the use of an ambient scribe for clinic note documentation during this visit. During the visit, we reviewed the patient's health maintenance and preventive care strategies. I discussed the importance of regular monitoring of her anemia with hematology. We covered the benefits of her current contraception method, Kyleena, and encouraged her moderate alcohol intake. We reviewed her Tdap vaccination status and ordered a T-Spot test to screen for tuberculosis. I reassured her of her current good health status and emphasized the importance of continuing regular wellness visits. Orders: Orders Influenza [id number] Immunization Today Z23 - Encounter for immunization Patient Instructions: - Continue following up with hematology for anemia management. - Take pending T-Spot test for tuberculosis screening as ordered. - Keep vaccinations current as per schedule. - Limit alcohol consumption to social occasions, no more than twice a month. - Return for regular wellness visits to monitor overall health.
[2024-05-08 07:40] VITALS: BP 108/70; BMI 24.0
--- OUTSIDE RECORDS SUMMARY | 2024-05-08 07:40 | XMS_ITS | Clinical Summary ---
Author Organization [facility] Address [address] [place] [address] Care Team Providers Care Correctional Manager Name Role Phone Pcp, No Primary Care Provider Unavailabl e Allergies No known active allergies Medications Medication Sig Dispensed Refills Start Date End Date Status norethindrone-ethinyl estradiol-iron (ESTROSTEP FE) 1-20/1-30/1-35 MG-MCG Tab Take by mouth daily. Active fluticasone (FloNASE) 50 mcg/spray nasal sprayIndications:Sinu s congestion 1 spray into each nostril daily. 1 Bottle 01/01/2019 Active TRI-PREVIFEM 0.18/0.215/0.25 MG-35 MCG per tablet Take 1 tablet by mouth daily. 11 12/28/2018 Active Active Problems No known active problems Social History Tobacco Use Types Packs/Day Years Used Date Smoking Tobacco: Never Smokeless Tobacco: Never Alcohol Use Standard Drinks/Week Comments Never 0 (1 standard drink = 0.6 oz pur e alcohol) AUDIT-C Answer Date Recorded Frequency of Alcohol Consumption Never 01/07/2019 Average Number of Drinks Not on file 019 Frequency of Binge Drinking Not on file 12/12 Sex and Gender Information Value Date Recorded Sex Assigned at Not on file Gender Identity Not on file Sexual Orientation Not on file Last Filed Vital Signs Vital Sign Reading Time Taken Comments Blood Pressure 102/70 01/07/2019 12:41 PM EDT Pulse 67 01/07/2019 12:41 PM EDT Temperature 36.8 ??C (98.3 ??F) 01/07/2019 12:41 PM E DT Respiratory Rate 16 01/07/2019 12:41 PM EDT Oxygen Saturation 99% 01/07/2019 12:41 PM EDT Inhaled Oxygen Concentration - - Weight 54.4 kg (120 lb) 01/07/2019 12:41 PM EDT Height 157.5 cm (5' 2 ) 01/07/2019 12:41 PM EDT Body Mass Index 21.95 01/07/2019 12:41 PM EDT Plan of Treatment Health Maintenance Due Date Last Done Comments Hepatitis C Virus Screening 1999 HIV Screening 11/24/2012 HPV Vaccines (1 - 3-dose series) 11/24/2014 DTaP/Tdap/Td Vaccines (1 - Tdap) 11/24/2018 Hepatitis B Vaccines (1 of 3 - 19+ 3-dose series) 11/24/2018 Pap Smear (Ages 21-65) 11/24/2020 Influenza Vaccine 11/11/2023 COVID-19 Vaccine ( - 2023-2 5 season) 2023 Pneumococcal Vaccine: Pediat ronit (0-5 Years) and At-Risk Patients (6 to 49 Years) Aged Out No longer eligible b ased on patient's age to complete this topic Insurance Payer Benefit Plan / Group Subscriber ID Effective Dates Phone Address [facility] [id number] [address] Care Teams Correctional Manager Relationship Specialty Start Date End Date Pcp, No PCP - General General Medicine 04/12/18
--- OUTSIDE RECORDS SUMMARY | 2024-05-08 07:40 | XMS_ITS | Encounter Summary ---
Author Organization [facility] Address [address] [place] [address] Phone Care Team Providers Care Brass Reclaimer Name Role Phone Vi Neal MD Primary Care Provider [phone] Reason for Visit * Reason Comments Med Refill Encounter Details Date Type Department Care Team (Late st Contact Info) Description 12/14/2020 Refill [facility] [place] [address] [place] [address] Vi Neal MD [address] [place] [address] Encounter for contraceptive management, unspecified type Social History Tobacco Use Types Packs/Day Years Used Date Smoking Tobacco: Never Smokeless Tobacco: Never Comments:Never smoker Alcohol Use Standard Drinks/Week Comments Yes 0 (1 standard drink = 0.6 oz pur e alcohol) occas. Not much Hunger/Food Answer Date Recorded In the last 12 months, did y ou or your family ever eat less than you felt you should because there wasn't enough money for food? No 09/26/2019 Stable Housing Answer Date Recorded Are you worried that in the next 2 months you may not have stable housing? No 09/26/2019 Transportation Concerns Answer Date Rec orded In the last 12 months, have you or your family ever had to go without healthcare because you didn't have a way to get there? No 09/26/2019 Hazards in Home Answer Date Recorded Think about the place you li ve. Do you have problems with any of the following? Pests (mice or roaches), mold, no/not working smoke detectors, water leaks, no window guards. No 2019 Financing Utilities Answer Date Recorde d In the last 12 months, has t he electric, gas, oil, or water company threatened to shut off your services in your home? No 09/26/2019 Safety at Home Answer Date Recorded Are you or your family worried about feeling saf e in your home? No 09/26/2019 Outside Support Answer Date Recorded Do you feel that you need mo re support from other people or programs to help you care for yourself or your family? No 09/26/2019 Understanding Health Concerns Answer Da te Recorded Do you need help understandi ng your or your child's healthcare needs (diagnosis, medications, plan, etc.)? No 09/26/2019 Financing Health Concerns Answer Date R ecorded In the last 12 months, was t here a time when your child needed to see a doctor or get medications or supplies but could not because of cost? No 09/26/2019 Missing School or Work Answer Date Luis rded Did you or your child miss s chool or work because of a health problem that could have been avoided? No 09/26/2019 Comments No Sex and Gender Information Value Date Recorded Sex Assigned at Not on file Legal Sex Female 5:11 PM EDT Gender Identity Not on file Sexual Orientation Not on file documented as of this encounter Miscellaneous Notes * Telephone Encounter - Ariana Cast LPN - 12/17/2020 7:37 AM EDT Pharm requesting refill of tri- estarylla. Last PE 09/26/2019. Transferreing out has new appt with pcp in January. documented in this encounter Plan of Treatment Not on file documented as of this encounter Visit Diagnoses Diagnosis Encounter for contraceptive management, unspecified type documented in this encounter Care Teams Brass Reclaimer Relationship Specialty Start Date End Date Vi Neal MD [address] [place] [address] [place] [address] PCP - General 11/20/16 04/30/22 documented as of this encounter
--- OUTSIDE RECORDS SUMMARY | 2024-05-08 07:40 | XMS_ITS | Encounter Summary ---
Author Organization [facility] Address [address] [place] [address] Phone Care Team Providers Care Buckle Gluer Name Role Phone Vi Neal MD Primary Care Provider [phone] Encounter Details Date Type Department Care Team (Late st Contact Info) Description 11/26/2016 Conversion Encounter [facility] [place] [address] [place] [address] Social History Tobacco Use Types Packs/Day Years Used Date Smoking Tobacco: Never Comments:Never smoker Comments Unknown Sex and Gender Information Value Date Recorded Sex Assigned at Not on file Legal Sex Female 5:11 PM EDT Gender Identity Not on file Sexual Orientation Not on file documented as of this encounter Plan of Treatment Not on file documented as of this encounter Visit Diagnoses Not on filedocumented in this encounter Care Teams Buckle Gluer Relationship Specialty Start Date End Date Vi Neal MD [address] [place] [address] PCP - General 11/20/16 04/30/22 documented as of this encounter
--- OUTSIDE RECORDS SUMMARY | 2024-05-08 07:40 | XMS_ITS | Encounter Summary ---
Author Organization [facility] Address [address] [place] [address] Phone Care Team Providers Care Chute Boss Name Role Phone Vi Neal MD Primary Care Provider [phone] Encounter Details Date Type Department Care Team (Late st Contact Info) Description 12/22/2010 Documentation [facility] [place] Medicine [address] [place] [address] Family Medicine, Physician [address] [place], [place] [address] Social History Tobacco Use Types Packs/Day Years Used Date Smoking Tobacco: Never Assessed Comments Unknown Sex and Gender Information Value Date Recorded Sex Assigned at Not on file Legal Sex Female 5:11 PM EDT Gender Identity Not on file Sexual Orientation Not on file documented as of this encounter Plan of Treatment Not on file documented as of this encounter Visit Diagnoses Not on filedocumented in this encounter Care Teams Chute Boss Relationship Specialty Start Date End Date Vi Neal MD [address] [place] [address] PCP - General 11/20/16 04/30/22 documented as of this encounter
--- OUTSIDE RECORDS SUMMARY | 2024-05-08 07:40 | XMS_ITS | Encounter Summary ---
Author Organization [facility] Address [address] [place] [address] Phone Care Team Providers Care Philosophy Faculty Member Name Role Phone Vi Neal MD Primary Care Provider [phone] Reason for Visit * Reason Comments Med Refill Encounter Details Date Type Department Care Team (Late st Contact Info) Description 02/21/2018 Refill [facility] [place] [address] [place] [address] Lee Ann Gallardo MD Encounter for contraceptive management, unspecified type Social History Tobacco Use Types Packs/Day Years Used Date Smoking Tobacco: Never Smokeless Tobacco: Never Comments:Never smoker Alcohol Use Standard Drinks/Week Comments No 0 (1 standard drink = 0.6 oz pur e alcohol) Comments No Sex and Gender Information Value Date Recorded Sex Assigned at Not on file Legal Sex Female 5:11 PM EDT Gender Identity Not on file Sexual Orientation Not on file documented as of this encounter Miscellaneous Notes * Telephone Encounter - Tran Carrillo LPN - 02/21/2018 9:02 AM EST Pharm fax refill request OCP. EH documented in this encounter Plan of Treatment Not on file documented as of this encounter Visit Diagnoses Diagnosis Encounter for contraceptive management, unspecified type documented in this encounter Care Teams Philosophy Faculty Member Relationship Specialty Start Date End Date Vi Neal MD [address] [place] [address] PCP - General 8/11/17 1/19/23 documented as of this encounter
--- OUTSIDE RECORDS SUMMARY | 2024-05-08 07:40 | XMS_ITS | Encounter Summary ---
Author Organization [facility] Address [address] [place] [address] Phone Care Team Providers Care Bellman Captain Name Role Phone Vi Neal MD Primary Care Provider Reason for Visit * Reason Comments Med Refill Encounter Details Date Type Department Care Team (Late st Contact Info) Description 03/09/2021 Refill [facility] [place] [address] [place] [address] Vi Neal MD [address] [place] [address] Encounter for contraceptive management, unspecified type Social [...] encounter Miscellaneous Notes * Telephone Encounter - Lila Brink LPN - 03/09/2021 12:42 PM EST Per note from 12/31, patient was transferring out to * Telephone Encounter - Lila Brink LPN - 03/09/2021 12:39 PM EST Refill request for ocp. Last OV documented in this encounter Plan of Treatment Not on file documented as of this encounter Visit Diagnoses Diagnosis Encounter for contraceptive management, unspecified type documented in this encounter Care Teams Bellman Captain Relationship Specialty Start Date End Date Vi Neal MD [address] [place] [address] [place] [address] PCP - General 11/20/16 04/30/22 documented as of this encounter
--- OUTSIDE RECORDS SUMMARY | 2024-05-08 07:40 | XMS_ITS | Encounter Summary ---
Author Organization [facility] Address [address] [place] [address] Care Team Providers Care Abrasive Wheel Molder Name Role Phone Pcp, No Primary Care Provider Unavailabl e Encounter Details Date Type Department Care Team (Late st Contact Info) Description 01/04/2019 Telephone [facility] [address] [phone] Jarett Green MD [address] [place] [address] Social History Tobacco Use Types Packs/Day Years Used Date Smoking Tobacco: Never Assessed AUDIT-C Answer Date Recorded Frequency of Alcohol [...] on filedocumented in this encounter Care Teams Abrasive Wheel Molder Relationship Specialty Start Date End Date Pcp, No PCP - General General Medicine 04/12/18 documented as of this encounter
--- OUTSIDE RECORDS SUMMARY | 2024-05-08 07:40 | XMS_ITS | Clinical Summary ---
Author Organization [facility] Address [address] [place] [address] Phone Care Team Providers Care Envelope Sealer Operator Name Role Phone Unavailable Primary Care Provider Unavailabl e Allergies No known active allergies Medications fluticasone (FLONASE) 50 MCG/ACT nasal sprayIndications: Pharyngitis, unspecified etiology Administer 1 spray into each nostril daily. 1 Units 5 8 Active Tri-Estarylla 0.18/0.215/0.25 MG-35 MCG per tabletIndications :Encounter for contraceptive management, unspecified type TAKE 1 TABLET BY MOUTH EVERY DAY 84 tablet 1 Active Active Problems Problem Noted Date Diagnosed Date Need for case management follow-up 09/26/2019 Overview (09/26/2019): 09/26/2019 : Ashtyn who is 18yr was seen today during the covid 19 pandemic. When the pandemic subsides, she needs Age appropriate vital signs, Age appropriate, 18yr, immunizations (MenB - if Patient decides to get) , Age appropriate Vision +/- hearing screening, CBC, GC/Chlamydia screening, Lipid screening Macrocytic anemia 12/10/2015 Overview (09/26/2019): Seen by Kodi 2015. Normal B12 (known FHx pernicious anemia), folate, LFTs, TFTs. Hemoglobin electrophoresis was normal. Kodi wished to follow but family did not go back. If persists was to get bone marrow Bx. They thought Pt may have has Fe Defic anemia & high retics caused increase MCV. On OCPs for heavy menses. Seen by Kodi in FU 12/2016 - no gene for hematochromatosis. Heme did bone marrow Bx 06/28/18: I spoke with Dr Lopez. Pt did not keep appt with him summer 2017. DR Lopez recommends Pt see Agricultural Produce Sorter at [facility] who specializes in Iron/B12 metabolism. He believes this is familial & is worth Pt going for testing. Family was alerted & FU was recomended Assessment & Plan (09/26/2019 10:20 AM EDT): Did not set up FU at Heme-Onc as recommended last year Patient says Dr Lopez wanted Patient to see surgical tech at [facility] Because of Coronavirus pandemic will wait on this at this time but will refer when things settle down Assessment & Plan (06/27/2018 9:19 AM EDT): Heme Onc did bone marrow Bx ~ 03/2017. I do not have a result but Ashtyn believes all was OK. Will try to get result Pt does not think she needed follow up Assessment & Plan (12/15/2016 2:08 PM EDT): Will recheck labs today If abnormal will refer back to Hematology for further evaluation Continue OCPs Immunizations Name Administration Dates Next Due DTaP 5 01/17/2004, 2,05/28/2000,03/19,01/20/2000 H1N1 02/13/2009 HPV Vaccine 9 Valent 12/09/2015,01/02/2015,12/03 Hep A, ped/adol 05/29/2014,11/21/2013 Hep B, ped/adol 08/27/2000,05/28/2000,1999 Hib (PRP-T) 04/15/2001, 1,03/19/2000,01/19 IPV 01/17/2004, 2,03/19/2000,01/19 Influenza Split 03/11/2011,03/11/2010 Influenza, injectable, quadr ivalent, preservative free 06/27/2018,12/15/2016,12/09/2015,12/03,04/27/2013 Influenza, injectable, trivalent 03/06/2009 MMR 01/17/2004,12/31/2000 Meningococcal Conj (Menactra) MCV4P 12/15/2016,1 05/11/2010 Pneumococcal Conjugate 05/28/2000,03/19/2000,01/2000 Tdap 03/11/2011 Varicella 02/24/2008,12/31/2000 Family History Medical History Relation Name Comments Cancer (Adult Onset) Paternal Grandfather bladder Diabetes Paternal Grandfather Heart disease (Premature) Paternal Grandfather Hyperlipidemia Paternal Grandfather Glaucoma Paternal Grandmother Migraines Paternal Grandmother Relation Name Status Comments Father Alive Mother Alive Paternal Grandfather Paternal Grandmother Sister Alive Social History Tobacco Use Types Packs/Day Years [...] the last 12 months, has t he [employer], gas, oil, or water [employer] threatened to shut off your services in [...] Sign Reading Time Taken Comments Blood Pressure 107/59 12/05/2018 4:38 PM EDT Pulse 101 12/05/2018 4:38 PM EDT Temperature 36.9 ??C (98.5 ??F) 12/05/2018 4:38 PM ED T Respiratory Rate - - Oxygen Saturation - - Inhaled Oxygen Concentration - - Weight 59.6 kg (131 lb 6.4 oz) 09/26/2019 9:48 A M EDT Height 160 cm (5' 3 ) 09/26/2019 9:48 AM EDT Body Mass Index 23.28 09/26/2019 9:48 AM EDT Plan of Treatment Health Maintenance Due Date Last Done Comments Influenza Vaccines (#1) 2023 01/10/20, 06/27/2018, 12/15/2016, Additional history exists COVID-19 Vaccine ( season) 2023 04/28/2021, 08/03/2020, 07/13/2020 DTaP,Tdap,and Td Vaccines (8 - Td or Tdap) 01/09/2032 01/08/2022, 03/11/2011, 01/17/2004, Additional history exists Pneumococcal Vaccine Aged Out 05/28/2000, 03/19/2000, 01/20/2000 No longer eligible based on patient's age to complete this topic Hepatitis B Vaccines Completed 08/27/2000, 05/28/2000, 1999 HIB Vaccines Completed 04/15/2001, 05/13, 03/19/2000, Additional history exists IPV Vaccines Completed 01/17/2004, 07/2001, 03/19/2000, Additional history exists MMR Vaccines Completed 01/17/2004, 12/31/2000 Varicella Vaccines Completed 02/24/2008, 12/31/2000 Hepatitis A Vaccines Completed 05/29/2014, 11/22/19 14 HPV Vaccines Completed 12/09/2015, 12/12, 12/03/2014 Meningococcal Vaccine Completed 12/15/2016, 011 Men B Vaccine Aged Out No longer elig ible based on patient's age to complete this topic Procedures * Due to [place] [employer] law, this organization might not be sharing sensitive test results. Procedure Name Priority Date/Time Associated Diagnosis Comments CHLAMYDIA AND GONORRHEA, AMPLIFIED Routine 06/27/2018 10:19 AM EDT Screening examination for bacterial and spirochetal disease from Last 3 Months or Most Recently Relevant to Health Maintenance Results * Due to [place] [employer] law, this organization might not be sharing sensitive test results. * Chlamydia and Gonorrhoea, Amplified (06/27/2018 10:19 AM EDT) Pathologist [facility] Chlamydia Trachomatis, DNA Probe NEGATIVE (NEG) [facility] Comment: No Chlamydia Trachomatis RNA detected in this patient's sample ? (REFERENCE RANGE/NORMAL VALUE: NOT DETECTED) ? Note: This test uses artillery meteorological man- mediated amplification method to detect rRNA from C. Trachomatis URINE GC AMP PROBE NEGATIVE (NEG) [facility] Comment: No Neisseria Gonorrhoeae RNA detected in this patient's sample ? (REFERENCE RANGE/NORMAL VALUE: NOT DETECTED) ? NOTE: This test uses artillery meteorological man-mediated amplification method to detect rRNA from N.Gonorrhoeae. A negative result does not preclude infection. In the case of a negative urine result, testing of an endocervical(female) or urethral (male) specimen is recommended if there is high clinical suspicion of infection. Due to very high sensitivity of Nucleic Acid Amplification Test, false positive results may occur. Therefore, specimen handling is extremely important. In patients in whom the disease is unlikely, additional sample for testing should be considered after an initial positive result. The performance characteristics of this test have not been evaluated in children. The Aptima Combo2 assay is not intended for the evaluation of suspected sexual abuse or for other medico-legal indications. The ordering provider should assess if the patient had consensual sex without risk of sexual abuse. Consult the [facility] if needed. Contact phone number . Therapeutic failure or success cannot be determined with the Aptima Combo2 assay since nucleic acid may persist following appropriate antimicrobial therapy. The Centers for Disease Control and Prevention (CDC) recommends confirmatory retesting using culture or a different nucleic acid amplification test when positive results occur, if indicated. Testing performed or reported by [facility], a Service of [facility], [address] [place] [address] Urine 06/27/2018 10:1 9 AM EDT 06/27/2018 11:33 PM EDT Vi Neal MD LAB MICROBIOLOGY - GENERAL ORDER SHYANNE Final Result [facility] from Last 3 Months or Most Recently Relevant to Health Maintenance Insurance [facility]
--- OUTSIDE RECORDS SUMMARY | 2024-05-08 07:40 | XMS_ITS | Encounter Summary ---
Author Organization [facility] Address [address] [place] [address] Phone Care Team Providers Care Sign Painter Helper Name Role Phone Vi Neal MD Primary Care Provider [phone] Encounter Details Date Type Department Care Team (Late st Contact Info) Description 01/02/2016 Documentation [facility] Family Medicine [address] [place] [address] Family Medicine, Physician [address], [place] [address] Social History Tobacco Use Types Packs/Day Years [...] on filedocumented in this encounter Care Teams Sign Painter Helper Relationship Specialty Start Date End Date Vi Neal MD [address] [place] [address] PCP - General 11/20/16 04/30/22 documented as of this encounter
--- OUTSIDE RECORDS SUMMARY | 2024-05-08 07:40 | XMS_ITS ---
Author Name [facility] Organization Unknown Problems Problem Status Onset Date Problem Type Date of Resolution Source Screening examination for pulmonary tuberculosis active EncounterDiagnosisAct [facility] Immunizations Vaccine Date Source Lot Number Status PPD Test 01/26/2024 [facility] [id number] completed
== END 2024-05-08 07:56 | disposition home or self-care (01) ==
PROVIDERS: PCP Internal Medicine; Visit Provider Internal Medicine
DX: Z00.00 Encounter for general adult medical examination without abnormal findings (principal); Z23 Encounter for immunization

== ENCOUNTER 2024-08-28 11:34 | Outpatient (AMB) | payer BC, SELFPAY ==
[2024-08-28 11:42] VITALS: BP 118/72; BMI 23.8
--- NOTE | 2024-08-28 11:42 | A.OFFVIS_ITS ---
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 She is known a long time before that. She has a Kyleena IU S since June of 2022 and her Pap smear was done then as well. She is not having any current health concerns. She is waiting on a Hematology evaluation. [facility] Medical History Anemia Surgical History History of lingual frenotomy History of wisdom tooth extraction Family History Father Hypertension Mother No problems noted. Paternal Grandfather Cancer Social History (Updated 05/08/24 @ 07:51 by Mansi Thompson MD) Household Members: Family Housing: House Alcohol intake: current Alcohol intake frequency: a few times a month Alcohol type: wine and hard liquor Patient Tobacco Use Status: Never used Tobacco e-Cigarette/Vaping Use: Currently Using Second Hand Smoke Exposure: No service: No Current occupational status: student Current occupational exposures/hazards: No Sexual orientation: Straight/Heterosexual Gender identity: Female Cognitive needs: No Hearing needs: No Vision needs: Yes Female Reproductive History Menstrual Age of Menarche: 11 control method: progestin IUCD Total pregnancies: 1 Number of Living Children: 0 Ab induced: 1 Date of last pap smear: 07/06/22 Physical Exam Const General: healthy appearing, comfortable, no acute distress, well developed and alert Nutritional Appearance: average body habitus Orientation/consciousness: patient oriented x3 Limitations: no limitations HEENT Head: Yes normocephalic Neck Neck: Yes normal visual inspection Chest Chest palpation & inspection: normal inspection of the chest Breast/axilla inspection: normal inspection of the breasts and normal inspection of the axillae Breast/axilla palpation: normal palpation of the breasts and normal palpation of the axillae Resp Effort & Inspection: normal respiratory effort GI Inspection: Yes normal to inspection, No Abdominal wall edema and No distended Palpation (GI): Soft to palpation and nontender Other: External exam within normal limits vagina is pink and moist normal-appearing white mucousy discharge. Cervix nulliparous pink smooth healthy appearing with normal appearing mucus with blue Kyleena string visible. It extends about 2 cms to 3 cms. Cervix long close thick mobile nontender uterus midposition mobile nontender bladder full nontender adnexa nontender good tone with Kegel. General: Yes bladder normal to palpation External Female Exam: normal external appearance and normal appearance of the urethra Speculum Exam - Vagina: normal appearance of the vagina, normal palpation and normal vaginal discharge Speculum Exam - Cervix: normal appearance of the cervix, normal palpation and nontender Bimanual exam- vagina & uterus: normal bimanual exam, normal palpation, uterine size normal, bladder normal to palpation, consistency normal, normal palpation, uterine mobility normal, uterine shape normal, No Cervical tenderness present, non-tender and no cervical motion tenderness Bimanual Exam- Adnexa, other: normal adnexae, no masses, normal and No adnexal tenderness Neuro General: patient oriented x3 Results Reviewed Results Reviewed: Name: Ashtyn Hernandez Age/Sex: 21/F Attending: Anuja Hernandez CNM : 2000 Submitted by: Anuja Hernandez CNM Copies to: Mansi Ocasio MD MR #: [id number] Status: DEP REF Collected: 07/03/22 Location: .[facility] Received: 07/06/22 Interpretation Satisfactory for evaluation. Negative for intraepithelial lesion or malignancy. Clinical Information LMP: 06/2022 Previous PAP test: Never Material Received ThinPrep-Cervical Copies To Anuja Hernandez CNM [address] [place] [address] [address]. [address] [place] [address] Mansi Ocasio MD [address] [place] [address] [address]. [address] [place] [address] Electronically Signed By: Berna Alonzo 07/13/22 1206 The Pap Test is a screening procedure with the inherent possibility of both false negative and false positive results. Results should be interpreted in the context of historic and current clinical findings. Reliability of the Pap Test is enhanced by performing the test on a regular repetitive basis. Patient: Ashtyn Hernandez Age/Sex: 21/F MR#: [id number] Page 1 of 1 Assessment & Plan Assessment & Plan (1) Contraception management: Comment: Has Kyleena IUD inserted 07/08/22, happy with it. Code(s): Z30.9 - Encounter for contraceptive management, unspecified Category: Medical (2) Screening for cervical cancer: Comment: 07/03/2022 Pap is negative. next pap 2025. Code(s): Z12.4 - Encounter for screening for malignant neoplasm of cervix Category: Medical (3) Well woman exam with routine gynecological exam: Code(s): Z01.419 - Encounter for gynecological examination (general) (routine) without abnormal findings Category: Medical (4) Encounter for routine checking of intrauterine contraceptive device (IUD): Code(s): Z30.431 - Encounter for routine checking of intrauterine contraceptive device Category: Medical (5) Encounter for screening examination for sexually transmitted disease: Code(s): Z11.3 - Encounter for screening for infections with a predominantly sexual mode of transmission Category: Medical Plan -----Discussed in this visit the following: healthy balanced diet, regular and consistent exercise, getting recommended health screens, doing the best she can for her particular health concerns, kegel exercises, pap smear screening and followup recommendations, mammography screening and SBE, normal changes in cycles in her life stage--- . Reviewed her IUD it is serving her well she just gets a little bit of staining with it once in the while. Offered screening for STIs she does not really have any concerns but she wants to verify. Lab orders placed for blood work and she will probably go get them tomorrow. She has some labs ordered by geospatial scientist as well so she may get those all done together tomorrow morning She is not due for Pap smear till next year. Testing for STIs was offered and done at the gyn physician exam Reviewed her life goals and next moves she graduated yesterday and she is going to be taking a little bit of time off to study for her boards and then planning a move to [place]. She is on the portal so she will be able to check her results. Timeframe/Date Comment Labs and RTC 1 year Orders: Orders CT NG by PCR Today Z11.3 - Encounter for screening for infections with a predo minantly sexual mode of transmission Bacterial Vaginosis Panel Today Z11.3 - Encounter for screening for infections with a predominantly sexual mode of transmission Hepatitis B Surface Antigen Today Z01.419 - Encounter for gynecological examination (general) (routine) without abnormal findings, Z11.3 - Encounter for screening for infections with a predominantly sexual mode of transmission, Z12.4 - Encounter for screening for malignant neoplasm of cervix, Z30.431 - Encounter for routine checking of intrauterine contraceptive device, Z30.9 - Encounter for contraceptive management, unspecified Hepatitis C Antibody Today Z01.419 - Encounter for gynecological examination (general) (routine) without abnormal findings, Z11.3 - Encounter for screening for infections with a predominantly sexual mode of transmission, Z12.4 - Encounter for screening for malignant neoplasm of cervix, Z30.431 - Encounter for routine checking of intrauterine contraceptive device, Z30.9 - Encounter for contraceptive management, unspecified Syphilis Screen Today Z01.419 - Encounter for gynecological examination (general) (routine) without abnormal findings, Z11.3 - Encounter for screening for infections with a predominantly sexual mode of transmission, Z12.4 - Encounter for screening for malignant neoplasm of cervix, Z30.431 - Encounter for routine checking of intrauterine contraceptive device, Z30.9 - Encounter for contraceptive management, unspecified HIV Ab/Ag Today Z01.419 - Encounter for gynecological examination (general) (routine) without abnormal findings, Z11.3 - Encounter for screening for infections with a predominantly sexual mode of transmission, Z12.4 - Encounter for screening for malignant neoplasm of cervix, Z30.431 - Encounter for routine checking of intrauterine contraceptive device, Z30.9 - Encounter for contraceptive management, unspecified Coding Level of Care Code Est Pt Prev Care [id number]([id number]) Diagnoses Contraception management Z30.9 Screening for cervical cancer Z12.4 Well woman exam with routine gynecological exam Z01.419 Encounter for routine checking of intrauterine contraceptive device (IUD) Z30.431 Encounter for screening examination for sexually transmitted disease Z11.3
--- OUTSIDE RECORDS SUMMARY | 2024-08-28 12:24 | XMS_ITS | Encounter Summary ---
Author Organization [facility] Address [address] [place] [address] Phone Care Team Providers Care Booth Cleaner Name Role Phone Vi Neal MD Primary Care Provider [phone] Encounter Details Date Type Department Care Team (Late st Contact Info) Description 01/02/2016 Documentation [facility] Family Medicine [address] [place] [address] Family Medicine, Physician [address] [place], [place] [address] Social History Tobacco Use Types Packs/Day Years [...] on filedocumented in this encounter Care Teams Booth Cleaner Relationship Specialty Start Date End Date Vi Neal MD [address] [place] [address] PCP - General 11/20/16 04/30/22 documented as of this encounter
--- OUTSIDE RECORDS SUMMARY | 2024-08-28 12:24 | XMS_ITS | Encounter Summary ---
Author Organization [facility] Address [address] [place] [address] Phone Care Team Providers Care Slip Sheeter Name Role Phone Vi Neal MD Primary Care Provider [phone] Encounter Details Date Type Department Care Team (Late st Contact Info) Description 11/26/2016 Conversion Encounter [facility] [address] [place] [address] Social History Tobacco Use Types Packs/Day Years [...] on filedocumented in this encounter Care Teams Slip Sheeter Relationship Specialty Start Date End Date iV Neal MD [address] [place] [address] PCP - General 11/20/16 04/30/22 documented as of this encounter
--- OUTSIDE RECORDS SUMMARY | 2024-08-28 12:24 | XMS_ITS | Clinical Summary ---
Author Organization [facility] Address [address] [place] [address] Phone Care Team Providers Care Vp Corporate Partnerships Name Role Phone Unavailable Primary Care Provider [...] summer 2017. DR Lopez recommends Pt see [place] Team Leader at [facility] who specializes in Iron/B12 metabolism. He believes this is familial & is worth Pt going for testing. Family was alerted & FU was recomended Assessment & Plan (09/26/2019 10:20 AM EDT): Did not set up FU at [facility] as recommended last year Patient says Dr Lopez wanted Patient to see corrections lieutenant at [facility] Because of Coronavirus pandemic will wait on [...] Hematology for further evaluation Continue OCPs Immunizations Immunization Administration Dates Next Due DTaP 5 01/17/2004, [...] the last 12 months, has t he [employer] gas, oil, or water [employer] threatened to shut off your services in [...] complete this topic Procedures * Due to [place] law, this organization might not be sharing sensitive test results. Procedure Name Priority Date/Time Associated Diagnosis Comments CHLAMYDIA AND GONORRHEA, AMPLIFIED Routine 06/27/2018 10:19 AM EDT Screening examination for bacterial and spirochetal disease from Last 3 Months or Most Recently Relevant to Health Maintenance Results * Due to [place] law, this organization might not be sharing sensitive test results. * Chlamydia and Gonorrhoea, Amplified (06/27/2018 10:19 AM EDT) Pathologist [facility] Chlamydia Trachomatis, DNA Probe NEGATIVE (NEG) [facility] Comment: No Chlamydia Trachomatis RNA detected in this patient's sample ? (REFERENCE RANGE/NORMAL VALUE: NOT DETECTED) ? Note: This test uses sales and service consultant- mediated amplification method to detect rRNA from C. Trachomatis URINE GC AMP PROBE NEGATIVE (NEG) [facility] Comment: No Neisseria Gonorrhoeae RNA detected in this patient's sample ? (REFERENCE RANGE/NORMAL VALUE: NOT DETECTED) ? NOTE: This test uses sales and service consultant-mediated amplification method to detect rRNA from N.Gonorrhoeae. [...] without risk of sexual abuse. Consult the [facility] if needed. Contact phone number . Therapeutic failure or success cannot be determined with the Aptima Combo2 assay since nucleic acid may persist following appropriate antimicrobial therapy. The Centers for Disease Control and Prevention (CDC) recommends confirmatory retesting using culture or a different nucleic acid amplification test when positive results occur, if indicated. Testing performed or reported by [facility], a Service of [facility], [address] [place] [address] Urine 06/27/2018 10:1 9 AM EDT 06/27/2018 11:33 PM EDT Vi Neal MD LAB MICROBIOLOGY - GENERAL ORDER SHYANNE Final Result [facility] from Last 3 Months or Most Recently Relevant to Health Maintenance Insurance [facility]
--- OUTSIDE RECORDS SUMMARY | 2024-08-28 12:24 | XMS_ITS | Encounter Summary ---
Author Organization [facility] Address [address] [place] [address] Care Team Providers Care Thread Twister Name Role Phone Pcp, No Primary Care Provider Unavailabl e Encounter Details Date Type Department Care Team (Late st Contact Info) Description 01/04/2019 Telephone [facility] [address] [phone] Jarett Green MD [address] [place] [address] Social History Tobacco Use Types Packs/Day Years Used Date Smoking Tobacco: Never Assessed AUDIT-C Answer Date Recorded Frequency of Alcohol Consumption Never 01/07/2019 Average Number of Drinks Not on file 019 Frequency of Binge Drinking Not on file 12/12 Comments Unknown Sex and Gender Information Value Date Recorded Sex Assigned at Not on file Legal Sex Female 10:30 AM EDT Gender Identity Not on file Sexual Orientation Not on file documented as of this encounter Functional Status documented as of this encounter Plan of Treatment Not on file documented as of this encounter Visit Diagnoses Not on filedocumented in this encounter Care Teams Thread Twister Relationship Specialty Start Date End Date Pcp, No PCP - General General Medicine 04/12/18 documented as of this encounter
--- OUTSIDE RECORDS SUMMARY | 2024-08-28 12:24 | XMS_ITS | Encounter Summary ---
Author Organization [facility] Address [address] [place] [address] Phone Care Team Providers Care Dinkey Engine Operator Name Role Phone Vi Neal MD Primary Care Provider [phone] Reason for Visit * Reason Comments Med Refill Encounter Details Date Type Department Care Team (Late st Contact Info) Description 02/21/2018 Refill [facility] [address] [place] [address] Lee Ann Gallardo MD Encounter for contraceptive [...] type documented in this encounter Care Teams Dinkey Engine Operator Relationship Specialty Start Date End Date Vi Neal MD [address] [place] [address] PCP - General 8/11/17 1/19/23 documented as of this encounter
--- OUTSIDE RECORDS SUMMARY | 2024-08-28 12:24 | XMS_ITS | Encounter Summary ---
Author Organization [facility] Address [address] [place] [address] Phone Care Team Providers Care Director Of Safety And Security Name Role Phone Vi Neal MD Primary Care Provider [phone] Encounter Details Date Type Department Care Team (Late st Contact Info) Description 12/22/2010 Documentation [facility] Family Medicine [address] [place] [address] Family Medicine, Physician [address] [place], [place] [address] Social History Tobacco Use Types Packs/Day Years [...] on filedocumented in this encounter Care Teams Director Of Safety And Security Relationship Specialty Start Date End Date Vi Neal MD [address] [place] [address] PCP - General 11/20/16 04/30/22 documented as of this encounter
--- OUTSIDE RECORDS SUMMARY | 2024-08-28 12:24 | XMS_ITS | Clinical Summary ---
Author Organization [facility] Address [address] [place] [address] Care Team Providers Care Water Hydrant Installer Name Role Phone Pcp, No Primary Care Provider Unavailabl e Allergies No known active allergies Medications norethindrone-e thinyl estradiol-iron (ESTROSTEP FE) 1-20/1-30/1-35 MG-MCG Tab Take by mouth daily. Active fluticasone (FloNASE) 50 mcg/spray nasal sprayIndication s:Sinus congestion 1 spray into each nostril daily. [...] series) 11/24/2018 Pap Smear (Ages 21-65) 11/24/2020 COVID-19 Vaccine (1 - 2023-2 5 season) 2023 Influenza Vaccine 11/10/2024 Pneumococcal Vaccine: Pediat ronit (0-5 Years) and At-Risk Patients (6 to 49 Years) Aged Out No longer eligible b ased on patient's age to complete this topic Insurance [facility] Care Teams Water Hydrant Installer Relationship Specialty Start Date End Date Pcp, No PCP - General General Medicine 04/12/18
--- OUTSIDE RECORDS SUMMARY | 2024-08-28 12:24 | XMS_ITS | Encounter Summary ---
Author Organization [facility] Address [address] [place] [address] Phone Care Team Providers Care Soap Tender Name Role Phone Vi Neal MD Primary Care Provider [phone] Reason for Visit * Reason Comments Med Refill Encounter Details Date Type Department Care Team (Late st Contact Info) Description 03/09/2021 Refill [facility] [place] [address] [place] [address] Vi Neal MD [address] [place] [address] Encounter for contraceptive management, unspecified type Social [...] type documented in this encounter Care Teams Soap Tender Relationship Specialty Start Date End Date Vi Neal MD [address] [place] [address] [place] [address] PCP - General 11/20/16 04/30/22 documented as of this encounter
--- OUTSIDE RECORDS SUMMARY | 2024-08-28 12:24 | XMS_ITS | Encounter Summary ---
Author Organization [facility] Address [address] [place] [address] Phone Care Team Providers Care Seat Joiner Name Role Phone Vi Neal MD Primary Care Provider [phone] Reason for Visit * Reason Comments Med Refill Encounter Details Date Type Department Care Team (Late st Contact Info) Description 12/14/2020 Refill [facility] [place] [facility] [address] [place] [address] Vi Neal MD [address] [place] [address] Encounter for contraceptive management, unspecified type Social [...] type documented in this encounter Care Teams Seat Joiner Relationship Specialty Start Date End Date Vi Neal MD [address] [place] [address] [place] [address] PCP - General 11/20/16 04/30/22 documented as of this encounter
== END 2024-08-28 12:49 | disposition home or self-care (01) ==
LOC: HO.HWS 11:35
PROVIDERS: PCP Internal Medicine; Visit Provider Advanced Practice Midwife
DX: Z01.419 Encounter for gynecological examination (general) (routine) without abnormal findings (principal)
CPT/HCPCS: 99395; 99459

== ENCOUNTER 2024-08-28 11:34 | Outpatient (REF) | payer BC, SELFPAY ==
--- OUTSIDE RECORDS SUMMARY | 2024-08-28 12:50 | XMS_ITS | Encounter Summary ---
Author Organization [facility] Address [address] [place] [address] Phone Care Team Providers Care Access Tech Name Role Phone Vi Neal MD Primary Care Provider [phone] Encounter Details Date Type Department Care Team (Late st Contact Info) Description 11/26/2016 Conversion Encounter [facility] [address] [place] [address] Social History Tobacco Use Types Packs/Day Years [...] on filedocumented in this encounter Care Teams Access Tech Relationship Specialty Start Date End Date Vi Neal MD [address] [place] [address] PCP - General 11/20/16 04/30/22 documented as of this encounter
--- OUTSIDE RECORDS SUMMARY | 2024-08-28 12:50 | XMS_ITS | Encounter Summary ---
Author Organization [facility] Address [address] [place] [address] Phone Care Team Providers Care Utility Assembler Name Role Phone Vi Neal MD Primary Care Provider [phone] Encounter Details Date Type Department Care Team (Late st Contact Info) Description 12/22/2010 Documentation [facility] [place] Medicine [address] [place] [address] Family Medicine, Physician [address] [place], [place] [address] Social History Tobacco Use Types Packs/Day Years [...] on filedocumented in this encounter Care Teams Utility Assembler Relationship Specialty Start Date End Date Vi Neal MD [address] [place] [address] PCP - General 11/20/16 04/30/22 documented as of this encounter
--- OUTSIDE RECORDS SUMMARY | 2024-08-28 12:51 | XMS_ITS | Encounter Summary ---
Author Organization [facility] Address [address] [place] [address] Care Team Providers Care Blender Operator Name Role Phone Pcp, No Primary Care Provider Unavailabl e Encounter Details Date Type Department Care Team (Late st Contact Info) Description 01/04/2019 Telephone [facility] [address] [phone] Jarett Green MD [address] [place] [address] Social History Tobacco Use Types Packs/Day Years [...] on filedocumented in this encounter Care Teams Blender Operator Relationship Specialty Start Date End Date Pcp, No PCP - General General Medicine 04/12/18 documented as of this encounter
--- OUTSIDE RECORDS SUMMARY | 2024-08-28 12:51 | XMS_ITS | Encounter Summary ---
Author Organization [facility] Address [address] [place] [address] Phone Care Team Providers Care Content Management Specialist Name Role Phone Vi Neal MD Primary Care Provider [phone] Encounter Details Date Type Department Care Team (Late st Contact Info) Description 01/02/2016 Documentation [facility] Family Medicine [address] [place] [address] Family Medicine, Physician [address] [place], [place] [address] Social History Tobacco Use Types Packs/Day Years [...] on filedocumented in this encounter Care Teams Content Management Specialist Relationship Specialty Start Date End Date Vi Neal MD [address] [place] [address] PCP - General 11/20/16 04/30/22 documented as of this encounter
--- OUTSIDE RECORDS SUMMARY | 2024-08-28 12:51 | XMS_ITS | Clinical Summary ---
Author Organization [facility] Address [address] [place] [address] Care Team Providers Care Investment Recovery Technician Name Role Phone Pcp, No Primary Care [...] patient's age to complete this topic Insurance [facility] Care Teams Investment Recovery Technician Relationship Specialty Start Date End Date Pcp, No PCP - General General Medicine 04/12/18
--- OUTSIDE RECORDS SUMMARY | 2024-08-28 12:51 | XMS_ITS | Clinical Summary ---
Author Organization [facility] Address [address] [place] [address] Phone Care Team Providers Care Heater Mechanic Name Role Phone Unavailable Primary Care Provider [...] summer 2017. DR Lopez recommends Pt see Journeyman Operator Assistant at [facility] who specializes in Iron/B12 metabolism. He believes this is familial & is worth Pt going for testing. Family was alerted & FU was recomended Assessment & Plan (09/26/2019 10:20 AM EDT): Did not set up FU at [facility] as recommended last year Patient says Dr Lopez wanted Patient to see mix mill tender at [facility] Because of Coronavirus pandemic will [...] the last 12 months, has t he [employer], gas, oil, or water [employer] threatened to shut off your services in [...] complete this topic Procedures * Due to [place] law, this organization might not be sharing sensitive test results. Procedure Name Priority Date/Time Associated Diagnosis Comments CHLAMYDIA AND GONORRHEA, AMPLIFIED Routine 06/27/2018 10:19 AM EDT Screening examination for bacterial and spirochetal disease from Last 3 Months or Most Recently Relevant to Health Maintenance Results * Due to [place] law, this organization might not be sharing sensitive test results. * Chlamydia and Gonorrhoea, Amplified (06/27/2018 10:19 AM EDT) Pathologist [facility] Chlamydia Trachomatis, DNA Probe NEGATIVE (NEG) [facility] Comment: No Chlamydia Trachomatis RNA detected in this patient's sample ? (REFERENCE RANGE/NORMAL VALUE: NOT DETECTED) ? Note: This test uses cultured marble products maker- mediated amplification method to detect rRNA from C. Trachomatis URINE GC AMP PROBE NEGATIVE (NEG) [facility] Comment: No Neisseria Gonorrhoeae RNA detected in this patient's sample ? (REFERENCE RANGE/NORMAL VALUE: NOT DETECTED) ? NOTE: This test uses cultured marble products maker-mediated amplification method to detect rRNA from N.Gonorrhoeae. [...] without risk of sexual abuse. Consult the [facility] if needed. Contact phone number . Therapeutic failure or success cannot be determined with the Aptima Combo2 assay since nucleic acid may persist following appropriate antimicrobial therapy. The Centers for Disease Control and Prevention (CDC) recommends confirmatory retesting using culture or a different nucleic acid amplification test when positive results occur, if indicated. Testing performed or reported by [facility], a Service of [facility], [address] [place] [address] Urine 06/27/2018 10:1 9 AM EDT 06/27/2018 11:33 PM EDT Vi Neal MD LAB MICROBIOLOGY - GENERAL ORDER SHYANNE Final Result [facility] from Last 3 Months or Most Recently Relevant to Health Maintenance Insurance [facility]
--- OUTSIDE RECORDS SUMMARY | 2024-08-28 12:51 | XMS_ITS | Encounter Summary ---
Author Organization [facility] Address [address] [place] [address] Phone Care Team Providers Care Diabetic Educator Name Role Phone Vi Neal MD Primary Care Provider [phone] Reason for Visit * Reason Comments Med Refill Encounter Details Date Type Department Care Team (Late st Contact Info) Description 02/21/2018 Refill [facility] [place] [address] [place] [address] Lee Ann Gallardo MD Encounter for contraceptive [...] type documented in this encounter Care Teams Diabetic Educator Relationship Specialty Start Date End Date Vi Neal MD [address] [place] [address] PCP - General 8/11/17 1/19/23 documented as of this encounter
--- OUTSIDE RECORDS SUMMARY | 2024-08-28 12:51 | XMS_ITS | Encounter Summary ---
Author Organization [facility] Address [address] [place] [address] Phone Care Team Providers Care Zinc Miner Blasting Name Role Phone Vi Neal MD Primary Care Provider [phone] Reason for Visit * Reason Comments Med Refill Encounter Details Date Type Department Care Team (Late st Contact Info) Description 12/14/2020 Refill [facility] [place] [address] [place] [address] Vi Neal MD [address] [place] [address] Encounter for contraceptive management, unspecified type Social [...] type documented in this encounter Care Teams Zinc Miner Blasting Relationship Specialty Start Date End Date Vi Neal MD [address] [place] [address] [place] [address] PCP - General 11/20/16 04/30/22 documented as of this encounter
--- OUTSIDE RECORDS SUMMARY | 2024-08-28 12:51 | XMS_ITS | Encounter Summary ---
Author Organization [facility] Address [address] [place] [address] Phone Care Team Providers Care Cube Cutter Name Role Phone Vi Neal MD Primary Care Provider [phone] Reason for Visit * Reason Comments Med Refill Encounter Details Date Type Department Care Team (Late st Contact Info) Description 03/09/2021 Refill [facility] [place] [address] [place] [address] Vi Neal MD [address] [place] [address] Encounter for contraceptive management, unspecified type Social [...] type documented in this encounter Care Teams Cube Cutter Relationship Specialty Start Date End Date Vi Neal MD [address] [place] [address] [place] [address] PCP - General 11/20/16 04/30/22 documented as of this encounter
[2024-08-28 18:15] LABS: Bacterial Vaginosis PCR NEGATIVE (Negative); Candida Group PCR NOT DETECTED (Not Detect); Candida glab krusei PCR NOT DETECTED (Not Detect); Trichomonas vaginalis PCR NOT DETECTED (Not Detect)
[2024-08-28 18:46] LABS: CT PCR NOT DETECTED (Not Detect.); NG PCR NOT DETECTED (Not Detect.)
[2024-08-29 03:30] LABS: Syphilis Screen Nonreactive (Nonreactive)
[2024-08-29 03:57] LABS: HBsAGNum1 0.32 S/CO (0.00-0.99); HIV AB/AG Nonreactive (Nonreactive); HIV Num 1 0.52 S/CO (0.00-0.99); Hepatitis B Surface Antigen Negative (Negative); ~HepC Num1 0.12 S/CO (0.00-0.79); ~Hepatitis C Antibody Nonreactive (Nonreactive)
== END 2024-08-28 11:35 | disposition home or self-care (01) ==
LOC: HO.LNP 11:34
PROVIDERS: PCP Internal Medicine; Visit Provider Advanced Practice Midwife
DX: Z01.419 Encounter for gynecological examination (general) (routine) without abnormal findings (principal); Z11.3 Encounter for screening for infections with a predominantly sexual mode of transmission
CPT/HCPCS: 81515; 86780; 86803; 87340; 87389; 87491; 87591

== ENCOUNTER 2024-08-28 12:47 | Outpatient (REF) | payer BC, SELFPAY | END 2024-08-28 12:48 | disposition home or self-care (01) | LOC: HO.LAB 12:47 | PROVIDERS: PCP Internal Medicine; Visit Provider Advanced Practice Midwife | DX: Z13.89 Encounter for screening for other disorder (principal) ==

== ENCOUNTER 2024-08-29 14:59 | Outpatient (REF) | payer BC, SELFPAY ==
--- OUTSIDE RECORDS SUMMARY | 2024-08-30 15:05 | XMS_ITS | Encounter Summary ---
Author Organization [facility] Address [address] [place] [address] Phone Care Team Providers Care Mgmt Analyst Name Role Phone Vi Neal MD Primary Care Provider [phone] Encounter Details Date Type Department Care Team (Late st Contact Info) Description 12/22/2010 Documentation [facility] Family Medicine [address] [place] [address] Family Medicine, Physician [address] [place], [place] [id number] Social History Tobacco Use Types Packs/Day Years [...] on filedocumented in this encounter Care Teams Mgmt Analyst Relationship Specialty Start Date End Date Vi Neal MD [address] [place] [address] PCP - General 11/20/16 04/30/22 documented as of this encounter
--- OUTSIDE RECORDS SUMMARY | 2024-08-30 15:05 | XMS_ITS | Clinical Summary ---
Author Organization [facility] Address [address] [place] [address] Care Team Providers Care Assistant Reading Teacher Name Role Phone Pcp, No Primary Care [...] patient's age to complete this topic Insurance [facility] Care Teams Assistant Reading Teacher Relationship Specialty Start Date End Date Pcp, No PCP - General General Medicine 04/12/18
--- OUTSIDE RECORDS SUMMARY | 2024-08-30 15:05 | XMS_ITS | Encounter Summary ---
Author Organization [facility] Address [address] [place] [address] Phone Care Team Providers Care Small Parts Shaper Operator Name Role Phone Vi Neal MD Primary Care Provider [phone] Encounter Details Date Type Department Care Team (Late st Contact Info) Description 11/26/2016 Conversion Encounter [facility] [place] [address] [place] [address] Social History Tobacco Use Types Packs/Day Years [...] on filedocumented in this encounter Care Teams Small Parts Shaper Operator Relationship Specialty Start Date End Date Vi Neal MD [address] [place] [address] PCP - General 11/20/16 04/30/22 documented as of this encounter
--- OUTSIDE RECORDS SUMMARY | 2024-08-30 15:06 | XMS_ITS | Encounter Summary ---
Author Organization [facility] Address [address] [place] [address] Phone Care Team Providers Care Research Hydraulic Engineer Name Role Phone Vi Neal MD Primary Care Provider [phone] Reason for Visit * Reason Comments Med Refill Encounter Details Date Type Department Care Team (Late st Contact Info) Description 03/09/2021 Refill [facility] [place] [address] [place] [address] Vi Neal MD [address] [place] [address] Encounter for contraceptive management, unspecified type Social [...] type documented in this encounter Care Teams Research Hydraulic Engineer Relationship Specialty Start Date End Date Vi Neal MD [address] [place] [address] [place] [address] PCP - General 11/20/16 04/30/22 documented as of this encounter
--- OUTSIDE RECORDS SUMMARY | 2024-08-30 15:06 | XMS_ITS | Encounter Summary ---
Author Organization [facility] Address [address] [place] [address] Phone Care Team Providers Care Flexo Folder Gluer Operator Name Role Phone Vi Neal MD Primary Care Provider [phone] Reason for Visit * Reason Comments Med Refill Encounter Details Date Type Department Care Team (Late st Contact Info) Description 12/14/2020 Refill [facility] [place] [address] [place] [address] Vi Neal MD [address] [place] [address] Encounter for contraceptive management, unspecified type Social [...] type documented in this encounter Care Teams Flexo Folder Gluer Operator Relationship Specialty Start Date End Date Vi Neal MD [address] [place] [address] [place] [address] PCP - General 11/20/16 04/30/22 documented as of this encounter
--- OUTSIDE RECORDS SUMMARY | 2024-08-30 15:06 | XMS_ITS | Encounter Summary ---
Author Organization [facility] Address [address] [place] [address] Phone Care Team Providers Care Physical Therapy Professor Name Role Phone Vi Neal MD Primary Care Provider Reason for Visit * Reason Comments Med Refill Encounter Details Date Type Department Care Team (Late st Contact Info) Description 02/21/2018 Refill [facility] [place] [address] [place] [address] Lee Ann Gallardo MD Encounter for contraceptive [...] type documented in this encounter Care Teams Physical Therapy Professor Relationship Specialty Start Date End Date Vi Neal MD [address] [place] [address] PCP - General 8/11/17 1/19/23 documented as of this encounter
--- OUTSIDE RECORDS SUMMARY | 2024-08-30 15:06 | XMS_ITS | Encounter Summary ---
Author Organization [facility] Address [address] [place] [address] Phone Care Team Providers Care Deputy Sheriff Chief Name Role Phone Vi Neal MD Primary Care Provider Encounter Details Date Type Department Care Team (Late st Contact Info) Description 01/02/2016 Documentation [facility] Family Medicine [address] [place] [address] Family Medicine, Physician [address] [place], [place] [id number] Social History Tobacco Use Types Packs/Day Years [...] on filedocumented in this encounter Care Teams Deputy Sheriff Chief Relationship Specialty Start Date End Date Vi Neal MD [address] [place] [address] PCP - General 11/20/16 04/30/22 documented as of this encounter
--- OUTSIDE RECORDS SUMMARY | 2024-08-30 15:06 | XMS_ITS | Encounter Summary ---
Author Organization [facility] Address [address] [place] [address] Care Team Providers Care Wheel Inspector Name Role Phone Pcp, No Primary Care Provider Unavailabl e Encounter Details Date Type Department Care Team (Late st Contact Info) Description 01/04/2019 Telephone [facility] [address] [id number] Jarett Green MD [address] [place] [address] Social History Tobacco Use Types Packs/Day Years [...] on filedocumented in this encounter Care Teams Wheel Inspector Relationship Specialty Start Date End Date Pcp, No PCP - General General Medicine 04/12/18 documented as of this encounter
--- OUTSIDE RECORDS SUMMARY | 2024-08-30 15:06 | XMS_ITS | Clinical Summary ---
Author Organization [facility] Address [address] [place] [address] Phone Care Team Providers Care Mine Car Mechanic Name Role Phone Unavailable Primary Care [...] On OCPs for heavy menses. Seen by [facility] in FU 12/2016 - no gene for hematochromatosis. Heme did bone marrow Bx 06/28/18: I spoke with Dr Lopez. Pt did not keep appt with him summer 2017. DR Lopez recommends Pt see Radiophone Operator at [facility] who specializes in Iron/B12 metabolism. He believes this is familial & is worth Pt going for testing. Family was alerted & FU was recomended Assessment & Plan (09/26/2019 10:20 AM EDT): Did not set up FU at [facility] as recommended last year Patient says Dr Lopez wanted Patient to see wire cutter at [facility] Because of Coronavirus pandemic [...] the last 12 months, has t he [employer], gas, oil, or water [employer] threatened to shut off your services in [...] complete this topic Procedures * Due to [place] [employer] [place] law, this organization might not be sharing sensitive test results. Procedure Name Priority Date/Time Associated Diagnosis Comments CHLAMYDIA AND GONORRHEA, AMPLIFIED Routine 06/27/2018 10:19 AM EDT Screening examination for bacterial and spirochetal disease from Last 3 Months or Most Recently Relevant to Health Maintenance Results * Due to [place] [employer] [place] law, this organization might not be sharing sensitive test results. * Chlamydia and Gonorrhoea, Amplified (06/27/2018 10:19 AM EDT) Pathologist [facility] Chlamydia Trachomatis, DNA Probe NEGATIVE (NEG) [facility] Comment: No Chlamydia Trachomatis RNA detected in this patient's sample ? (REFERENCE RANGE/NORMAL VALUE: NOT DETECTED) ? Note: This test uses raw sampler- mediated amplification method to detect rRNA from C. Trachomatis URINE GC AMP PROBE NEGATIVE (NEG) [facility] Comment: No Neisseria Gonorrhoeae RNA detected in this patient's sample ? (REFERENCE RANGE/NORMAL VALUE: NOT DETECTED) ? NOTE: This test uses raw sampler-mediated amplification method to detect rRNA from N.Gonorrhoeae. [...] without risk of sexual abuse. Consult the [facility] if needed. Contact phone number . Therapeutic failure or success cannot be determined with the Aptima Combo2 assay since nucleic acid may persist following appropriate antimicrobial therapy. The Centers for Disease Control and Prevention (CDC) recommends confirmatory retesting using culture or a different nucleic acid amplification test when positive results occur, if indicated. Testing performed or reported by [facility], a Service of [facility], [address] [place] [address] Urine 06/27/2018 10:1 9 AM EDT 06/27/2018 11:33 PM EDT Vi Neal MD LAB MICROBIOLOGY - GENERAL ORDER SHYANNE Final Result [facility] from Last 3 Months or Most Recently Relevant to Health Maintenance Insurance [facility]
== END 2024-08-29 15:00 | disposition home or self-care (01) ==
LOC: HO.LNP 14:59
PROVIDERS: Visit Provider Advanced Practice Midwife
DX: Z13.89 Encounter for screening for other disorder (principal)